=== PATIENT | female | born 1935 | race Caucasian/White ===

== ENCOUNTER → 2017-09-10 08:00 | Outpatient (CLI) | payer OTHER ==
[~2017-09-10 08:00] MED LIST: AMBIEN10 MG PO; CRESTOR10 MG PO; ECOTRIN81 MG PO; GABAPENTIN400 MG PO; HYZAAR 100-251 EACH PO; NEPHRONEX-SL T1 EACH PO; PLAVIX PO; TAMS0.4C PO; ZANTAC300 MG PO
== END | disposition home or self-care (01) ==
LOC: EKG 08:00 → ADM 09:00 → CIR.AMB 09-19 07:00 → EDSTATUS 09-19 09:00
DX: Z01.810 Encounter for preprocedural cardiovascular examination (principal); R15.9 Full incontinence of feces

== ENCOUNTER 2017-11-21 05:07 | Day surgery (SDC) | payer OTHER ==
[~2017-11-21 05:07] MED LIST changes: +TRESIBA FL200 UNIT/1
== END 2017-11-21 11:25 | disposition home or self-care (01) ==
LOC: CIR.AMB 05:07
DX: R15.9 Full incontinence of feces (principal)
CPT/HCPCS: 64581; C1778